=== PATIENT | male | born 1950 | race American Indian/Alaskan Native ===

== ENCOUNTER 2021-09-02 23:22 | Inpatient (IN) | payer OTHER ==
--- NOTE | 2021-09-02 23:28 | Emergency Department Report ---
ED Neuro Deficit HPI - General Chief Complaint: Neuro Symptoms/Deficit Stated Complaint: STROKE Time Seen by Provider: 09/02/21 23:25 Source: patient, EMS (Verbal report received from emergency medical services. EMS documentation not available at time of chart dictation ), RN notes reviewed Mode of arrival: Stretcher Limitations: Physical Limitation - History of Present Illness Initial Comments: The patient was evaluated in the emergency department for symptoms described in the history of present illness. He/she was evaluated in the context of the global COVID-19 pandemic, which necessitated consideration that the patient might be at risk for infection with the virus that causes COVID-19. Institutional protocols and algorithms that pertain to the evaluation of patients at risk for COVID-19 are in a state of rapid change based on information released by regulatory bodies including the CDC and federal and state organizations. These policies and algorithms were followed during the patient's care in the emergency department. Please note that these policies, procedures and recommendations changed on a rapid basis. The patient is a 71-year-old gentleman, who was brought to the hospital with emergency medical services as a stroke alert. The patient typically follows with the [facility] [address], and strokelike symptoms today include dysarthria, with onset at 7:00 PM, on September 02, 2021. The patient denies physical pain. He denies focal extremity weakness and numbness. He denies additional complaints. He denies taking systemic anticoagulation. He still feels like he is dysarthric. -: Sudden, hour(s) Location: speech Presenting Symptoms: Present: Unable to Speak Clearly History of same: No Place: home Severity: moderate Improves With: none Worsens With: none On Anticoagulants: No Associated Symptoms: denies other symptoms - Related Data Allergies/Adverse Reactions: Allergies Allergy/AdvReac Type Severity Reaction Status Date / Time No Known Allergies Allergy Verified 09/03/21 04:35 ED Review of Systems ROS: Stated complaint: STROKE Other details as noted in HPI Constitutional: denies: fever Eyes: denies: eye discharge ENT: denies: epistaxis Respiratory: denies: cough Cardiovascular: edema (Bilateral lower extremity edema). denies: chest pain Gastrointestinal: denies: abdominal pain, nausea, vomiting Genitourinary: denies: dysuria Neurological: weakness ED Neuro Physical Exam - General General appearance: alert, anxious Suspected Stroke: Yes - Head Head exam: Present: atraumatic, normocephalic - Eye Eye exam: Present: normal appearance, EOMI, other (Visual acuity intact to finger counting, color perception, reading at a close distance). Absent: nystagmus - ENT ENT exam: Present: normal exam, normal orophraynx, mucous membranes moist, normal external ear exam - Neck Neck exam: Present: normal inspection, full ROM. Absent: tenderness, meningismus - Respiratory Respiratory exam: Present: normal lung sounds bilaterally. Absent: respiratory distress, wheezes, rales, rhonchi, stridor, chest wall tenderness, accessory muscle use, decreased breath sounds, prolonged expiratory - Cardiovascular Cardiovascular Exam: Present: regular rate, normal rhythm, normal heart sounds. Absent: bradycardia, tachycardia, irregular rhythm, systolic murmur, diastolic murmur, rubs, gallop - GI/Abdominal GI/Abdominal exam: Present: soft. Absent: distended, tenderness, guarding, rebound, rigid, pulsatile mass - Rectal Rectal exam: Present: deferred - Extremities Exam Extremities exam: Present: normal inspection, full ROM, pedal edema, other (2+ pulses noted in the bilateral upper and lower extremities. There is no palpable cord. negative Homans sign. Muscular compartments are soft. The pelvis is stable.). Absent: calf tenderness - Back Exam Back exam: Present: normal inspection. Absent: tenderness, CVA tenderness (R), CVA tenderness (L), paraspinal tenderness, vertebral tenderness - Neurological Exam Neurological exam: Present: alert (Patient is dysarthric), oriented X3, other (No facial droop. Tongue midline. Extraocular movements intact bilaterally. Facial sensation intact to light touch in V1, V2, V3 distribution bilaterally. 5 and a 5 strength in 4 extremities. Sensation intact to light touch in 4 extremities.). Absent: motor sensory deficit - NIHSS Assessment Interval: Baseline 1a. Level of Consciousness: alert/keenly responsive 1b. LOC Questions: answers both correctly 1c. LOC Commands: performs tasks correctly 2. Best Gaze: normal 3. Visual: no visual loss 4. Facial Palsy: normal symmetrical movement 5b. Motor Arm Right: no drift 5a. Motor Arm Left: no drift 6a. Motor Leg Left: no drift 6b. Motor Leg Right: no drift 7. Limb Ataxia: absent 8. Sensory: normal 9. Best Language: no aphasia 10. Dysarthria: mild/moderate dysarthria 11. Extinction/Inattention: no abnormality Total Score: 1 Stroke Severity: Minor Stroke - Psychiatric Psychiatric exam: Present: normal affect, normal mood - Skin Skin exam: Present: warm, dry, intact, normal color. Absent: rash ED Course Vital Signs 09/02/21 09/03/21 09/03/21 23:27 00:30 00:46 Temperature 98.8 F Pulse Rate 96 H 102 H Respiratory 18 14 25 H Rate Blood Pressure 167/95 Blood Pressure 166/86 [Left] O2 Sat by Pulse 98 98 98 Oximetry 09/03/21 09/03/21 09/03/21 01:00 01:16 01:46 Temperature Pulse Rate 112 H 110 H 102 H Respiratory 30 H 14 15 Rate Blood Pressure 159/83 153/96 179/57 Blood Pressure [Left] O2 Sat by Pulse 99 98 99 Oximetry 09/03/21 09/03/21 09/03/21 02:30 03:01 03:15 Temperature Pulse Rate 92 H 95 H 123 H Respiratory 20 18 21 Rate Blood Pressure 159/121 159/121 157/96 Blood Pressure [Left] O2 Sat by Pulse 97 96 95 Oximetry 09/03/21 09/03/21 09/03/21 03:45 04:01 04:31 Temperature Pulse Rate 85 91 H 88 Respiratory 13 23 18 Rate Blood Pressure 144/103 128/79 140/82 Blood Pressure [Left] O2 Sat by Pulse 97 98 96 Oximetry 09/03/21 09/03/21 09/03/21 04:45 05:01 05:15 Temperature Pulse Rate 82 88 84 Respiratory 21 24 20 Rate Blood Pressure 156/98 155/95 164/101 Blood Pressure [Left] O2 Sat by Pulse 97 96 98 Oximetry 09/03/21 09/03/21 09/03/21 05:31 05:45 06:01 Temperature Pulse Rate 83 88 80 Respiratory 19 11 L 21 Rate Blood Pressure 131/91 136/84 139/82 Blood Pressure [Left] O2 Sat by Pulse 97 98 96 Oximetry 09/03/21 09/03/21 09/03/21 06:45 07:30 08:01 Temperature 98.7 F Pulse Rate 81 80 84 Respiratory 19 19 20 Rate Blood Pressure 167/99 142/93 Blood Pressure 143/98 [Left] O2 Sat by Pulse 94 96 98 Oximetry 09/03/21 09/03/2121 09:01 10:01 11:01 Temperature Pulse Rate 73 80 86 Respiratory 18 18 15 Rate Blood Pressure 148/93 151/81 158/100 Blood Pressure [Left] O2 Sat by Pulse 96 99 99 Oximetry 09/03/21 09/03/21 12:01 13:01 Temperature Pulse Rate 86 61 Respiratory 20 18 Rate Blood Pressure 156/86 132/68 Blood Pressure [Left] O2 Sat by Pulse 97 98 Oximetry - Reevaluation(s) Reevaluation #1: 09/03/21 00:11 Differential diagnosis, including but not limited to: Stroke, pneumonia, urinary tract infection, electrolyte derangement, thyroid derangement Assessment and plan: 71-year-old gentleman with dysarthria, NIH score of 1, nonfocal motor exam, who had his first contact here in the emergency room four hours, 20 minutes into symptom onset. Because of logistics involved with acquisition of CT scan, laboratory studies etc., and time of presentation here in the emergency room, relative to symptom onset, the patient is not a TPA candidate. noncontrast CT scan of the brain negative for acute findings. CT angiogram interpreted by consulting stroke neurology, Dr. Maye Orellana who indicates that there is no large vessel occlusion admission is recommended for presumed stroke. I discussed this with the patient. Aspirin ordered. Permissive hypertension allowed. Patient agreeable to admission and hospitalization 09/03/21 01:26 Dr Camejo to admit to [facility] The patient has not provided a urine sample at the time of admission. Defer to inpatient team to follow-up on urinalysis. TSH reviewed and appreciated. Defer to inpatient team to further evaluate and manage 09/03/21 16:16 - Lab Data Result diagrams: 09/03/21 00:07 09/03/21 00:07 Lab Results 09/03/21 09/03/21 09/03/21 Range/Units 00:07 00:07 00:07 WBC 13.4 H (4.5-11.0) K/mm3 RBC 4.73 (3.65-5.03) M/mm3 Hgb 16.2 H (11.8-15.2) gm/dl Hct 47.0 H (35.5-45.6) % MCV 99 H (84-94) fl MCH 34 H (28-32) pg MCHC 35 H (32-34) % RDW 16.4 H (13.2-15.2) % Plt Count 313 (140-440) K/mm3 Add Manual Diff Complete Total Counted 100 Seg Neuts % (Manual) 86.0 H (40.0-70.0) % Lymphocytes % (Manual) 8.0 L (13.4-35.0) % Monocytes % (Manual) 6.0 (0.0-7.3) % Nucleated RBC % Not Reportable Seg Neutrophils # Man 11.5 H (1.8-7.7) K/mm3 Band Neutrophils # 0.0 K/mm3 Lymphocytes # (Manual) 1.1 L (1.2-5.4) K/mm3 Abs React Lymphs (Man) 0.0 K/mm3 Monocytes # (Manual) 0.8 (0.0-0.8) K/mm3 Eosinophils # (Manual) 0.0 (0.0-0.4) K/mm3 Basophils # (Manual) 0.0 (0.0-0.1) K/mm3 Metamyelocytes # 0.0 K/mm3 Myelocytes # 0.0 K/mm3 Promyelocytes # 0.0 K/mm3 Blast Cells # 0.0 K/mm3 WBC Morphology Not Reportable Hypersegmented Neuts Not Reportable Hyposegmented Neuts Not Reportable Hypogranular Neuts Not Reportable Smudge Cells Not Reportable Toxic Granulation Not Reportable Toxic Vacuolation Not Reportable Dohle Bodies Not Reportable Pelger-Huet Anomaly Not Reportable Fredrick Rods Not Reportable Platelet Estimate Consistent w auto Clumped Platelets Not Reportable Plt Clumps, EDTA Not Reportable Large Platelets Not Reportable Giant Platelets Not Reportable Platelet Satelliting Not Reportable Plt Morphology Comment Not Reportable RBC Morphology Not Reportable Dimorphic RBCs Not Reportable Polychromasia Not Reportable Hypochromasia Not Reportable Poikilocytosis Not Reportable Anisocytosis Not Reportable Microcytosis Not Reportable Macrocytosis Few Spherocytes Not Reportable Pappenheimer Bodies Not Reportable Sickle Cells Not Reportable Target Cells Not Reportable Tear Drop Cells Not Reportable Ovalocytes Not Reportable Helmet Cells Not Reportable [place] Bodies Not Reportable [place] Rings Not Reportable Shaji Cells Not Reportable Bite Cells Not Reportable Crenated Cell Not Reportable Elliptocytes Not Reportable Acanthocytes (Spur) Not Reportable Rouleaux Not Reportable Hemoglobin C Crystals Not Reportable Schistocytes Not Reportable Malaria parasites Not Reportable Grady Bodies Not Reportable Hem Pathologist Commnt No PT 13.1 (12.2-14.9) Sec. INR 0.94 (0.87-1.13) APTT 26.4 (24.2-36.6) Sec. Thrombin Time 17.2 (15.1-19.6) Sec. Sodium (137-145) mmol/L Potassium (3.6-5.0) mmol/L Chloride (98-107) mmol/L Carbon Dioxide (22-30) mmol/L Anion Gap mmol/L BUN (9-20) mg/dL Creatinine (0.8-1.3) mg/dL Estimated GFR ml/min BUN/Creatinine Ratio % Glucose (75-100) mg/dL Calcium (8.4-10.2) mg/dL Magnesium (1.7-2.3) mg/dL Total Bilirubin (0.1-1.2) mg/dL AST (5-40) units/L ALT (7-56) units/L Alkaline Phosphatase (35-129) units/L Total Creatine Kinase 222 H (55-170) units/L CK-MB (CK-2) 4.0 (0.0-4.0) ng/mL CK-MB (CK-2) Rel Index 1.8 (0-4) Troponin T < 0.010 (0.00-0.029) ng/mL NT-Pro-B Natriuret Pep (0-900) pg/mL Total Protein (6.3-8.2) g/dL Albumin (3.9-5) g/dL Albumin/Globulin Ratio % TSH (0.270-4.200) mlU/mL Plasma/Serum Alcohol (0-0.07) % 09/03/21 09/03/21 09/03/21 Range/Units 00:07 00:07 00:07 WBC (4.5-11.0) K/mm3 RBC (3.65-5.03) M/mm3 Hgb (11.8-15.2) gm/dl Hct (35.5-45.6) % MCV (84-94) fl MCH (28-32) pg MCHC (32-34) % RDW (13.2-15.2) % Plt Count (140-440) K/mm3 Add Manual Diff Total Counted Seg Neuts % (Manual) (40.0-70.0) % Lymphocytes % (Manual) (13.4-35.0) % Monocytes % (Manual) (0.0-7.3) % Nucleated RBC % Seg Neutrophils # Man (1.8-7.7) K/mm3 Band Neutrophils # K/mm3 Lymphocytes # (Manual) (1.2-5.4) K/mm3 Abs React Lymphs (Man) K/mm3 Monocytes # (Manual) (0.0-0.8) K/mm3 Eosinophils # (Manual) (0.0-0.4) K/mm3 Basophils # (Manual) (0.0-0.1) K/mm3 Metamyelocytes # K/mm3 Myelocytes # K/mm3 Promyelocytes # K/mm3 Blast Cells # K/mm3 WBC Morphology Hypersegmented Neuts Hyposegmented Neuts Hypogranular Neuts Smudge Cells Toxic Granulation Toxic Vacuolation Dohle Bodies Pelger-Huet Anomaly Fredrick Rods Platelet Estimate Clumped Platelets Plt Clumps, EDTA Large Platelets Giant Platelets Platelet Satelliting Plt Morphology Comment RBC Morphology Dimorphic RBCs Polychromasia Hypochromasia Poikilocytosis Anisocytosis Microcytosis Macrocytosis Spherocytes Pappenheimer Bodies Sickle Cells Target Cells Tear Drop Cells Ovalocytes Helmet Cells [place] Bodies [place] Rings [place] Cells Bite Cells Crenated Cell Elliptocytes Acanthocytes (Spur) Rouleaux Hemoglobin C Crystals Schistocytes Malaria parasites Grady Bodies Hem Pathologist Commnt PT (12.2-14.9) Sec. INR (0.87-1.13) APTT (24.2-36.6) Sec. Thrombin Time (15.1-19.6) Sec. Sodium 137 (137-145) mmol/L Potassium 4.3 (3.6-5.0) mmol/L Chloride 102.4 (98-107) mmol/L Carbon Dioxide 20 L (22-30) mmol/L Anion Gap 19 mmol/L BUN 10 (9-20) mg/dL Creatinine 1.1 (0.8-1.3) mg/dL Estimated GFR > 60 ml/min BUN/Creatinine Ratio 9 % Glucose 167 H (75-100) mg/dL Calcium 9.0 (8.4-10.2) mg/dL Magnesium 1.70 (1.7-2.3) mg/dL Total Bilirubin 0.60 (0.1-1.2) mg/dL AST 23 (5-40) units/L ALT 23 (7-56) units/L Alkaline Phosphatase 67 (35-129) units/L Total Creatine Kinase (55-170) units/L CK-MB (CK-2) (0.0-4.0) ng/mL CK-MB (CK-2) Rel Index (0-4) Troponin T (0.00-0.029) ng/mL NT-Pro-B Natriuret Pep 415.9 (0-900) pg/mL Total Protein 7.2 (6.3-8.2) g/dL Albumin 4.0 (3.9-5) g/dL Albumin/Globulin Ratio 1.3 % TSH (0.270-4.200) mlU/mL Plasma/Serum Alcohol < 0.01 (0-0.07) % 09/03/21 Range/Units 00:07 WBC (4.5-11.0) K/mm3 RBC (3.65-5.03) M/mm3 Hgb (11.8-15.2) gm/dl Hct (35.5-45.6) % MCV (84-94) fl MCH (28-32) pg MCHC (32-34) % RDW (13.2-15.2) % Plt Count (140-440) K/mm3 Add Manual Diff Total Counted Seg Neuts % (Manual) (40.0-70.0) % Lymphocytes % (Manual) (13.4-35.0) % Monocytes % (Manual) (0.0-7.3) % Nucleated RBC % Seg Neutrophils # Man (1.8-7.7) K/mm3 Band Neutrophils # K/mm3 Lymphocytes # (Manual) (1.2-5.4) K/mm3 Abs React Lymphs (Man) K/mm3 Monocytes # (Manual) (0.0-0.8) K/mm3 Eosinophils # (Manual) (0.0-0.4) K/mm3 Basophils # (Manual) (0.0-0.1) K/mm3 Metamyelocytes # K/mm3 Myelocytes # K/mm3 Promyelocytes # K/mm3 Blast Cells # K/mm3 WBC Morphology Hypersegmented Neuts Hyposegmented Neuts Hypogranular Neuts Smudge Cells Toxic Granulation Toxic Vacuolation Dohle Bodies Pelger-Huet Anomaly Fredrick Rods Platelet Estimate Clumped Platelets Plt Clumps, EDTA Large Platelets Giant Platelets Platelet Satelliting Plt Morphology Comment RBC Morphology Dimorphic RBCs Polychromasia Hypochromasia Poikilocytosis Anisocytosis Microcytosis Macrocytosis Spherocytes Pappenheimer Bodies Sickle Cells Target Cells Tear Drop Cells Ovalocytes Helmet Cells [place] Bodies [place] Rings Shaji Cells Bite Cells Crenated Cell Elliptocytes Acanthocytes (Spur) Rouleaux Hemoglobin C Crystals Schistocytes Malaria parasites Grady Bodies Hem Pathologist Commnt PT (12.2-14.9) Sec. INR (0.87-1.13) APTT (24.2-36.6) Sec. Thrombin Time (15.1-19.6) Sec. Sodium (137-145) mmol/L Potassium (3.6-5.0) mmol/L Chloride (98-107) mmol/L Carbon Dioxide (22-30) mmol/L Anion Gap mmol/L BUN (9-20) mg/dL Creatinine (0.8-1.3) mg/dL Estimated GFR ml/min BUN/Creatinine Ratio % Glucose (75-100) mg/dL Calcium (8.4-10.2) mg/dL Magnesium (1.7-2.3) mg/dL Total Bilirubin (0.1-1.2) mg/dL AST (5-40) units/L ALT (7-56) units/L Alkaline Phosphatase (35-129) units/L Total Creatine Kinase (55-170) units/L CK-MB (CK-2) (0.0-4.0) ng/mL CK-MB (CK-2) Rel Index (0-4) Troponin T (0.00-0.029) ng/mL NT-Pro-B Natriuret Pep (0-900) pg/mL Total Protein (6.3-8.2) g/dL Albumin (3.9-5) g/dL Albumin/Globulin Ratio % TSH 8.140 H (0.270-4.200) mlU/mL Plasma/Serum Alcohol (0-0.07) % Vital Signs 09/02/21 23:27 Temperature 98.8 F Pulse Rate 96 H Respiratory 18 Rate Blood Pressure 166/86 [Left] O2 Sat by Pulse 98 Oximetry - EKG Data -: EKG Interpreted by [place] EKG shows normal: sinus rhythm Rate: normal When compared to previous EKG there are: previous EKG unavailable 09/03/21 00:10 EKG interpreted at 12: 00 a.m. Sinus rhythm, tachycardia, rate 100 bpm. Left axis deviation, left ventricular hypertrophy, PVCs. First-degree AV block, QTC 448 ms. Abnormal EKG. Not a STEMI. - Radiology Data Radiology results: pending, report reviewed, image reviewed CT HEAD WITHOUT CONTRAST INDICATION / CLINICAL INFORMATION: Stroke symptoms dysarthria. Dysarthria TECHNIQUE: All CT scans at this location are performed using CT dose reduction for ALARA by means of automated exposure control. CO MPARISON: None available. FINDINGS: HEMORRHAGE: None. EXTRA-AXIAL SPACES: Normal in size and morphology for the patient's age. VENTRICULAR SYSTEM: Normal in size and morphology for the patient's age. CEREBRAL PARENCHYMA: Moderate periventricular and deep white matter hypoattenuation characteristic for microangiopathy. No significant abnormality. No acute territorial infarct. MIDLINE SHIFT OR HERNIATION: None. CEREBELLUM / BRAINSTEM: No significant abnormality. ORBITS: Normal as visualized. SOFT TISSUES of HEAD: No significant abnormality. CALVARIUM: No significant abnormality. PARANASAL SINUSES / MASTOID AIR CELLS: Normal as visualized. ADDITIONAL FINDINGS: None. IMPRESSION: 1. No acute intracranial abnormality. 2. Microangiopathy CODE STROKE: Time of Communication (INSPECTOR BALANCE TRUING/CDT): 10:52 PM Central time 09/02/2021 Licensed Practitioner Receiving Report: Jacob Shrestha Signer Name: Mark Kirk MD Signed: 09/02/2021 10:53 PM Workstation Name: [id number] CHEST 1 VIEW 09/02/2021 11:27 PM INDICATION / CLINICAL INFORMATION: CVA symptoms, lower extremity edema. COMPARISON: None available. FINDINGS: SUPPORT DEVICES: None. HEART / MEDIASTINUM: No significant abnormality. LUNGS / PLEURA: No significant pulmonary or pleural abnormality. No pneumothorax. ADDITIONAL FINDINGS: No significant additional findings. IMPRESSION: 1. No acute findings. Signer Name: Mark Kirk MD Signed: 09/02/2021 11:31 PM COMPARISON: None. TECHNIQUE: All CT scans at this location are performed using CT dose reduction for ALARA by means of automated exposure control.. 3-D/MIP reformats postprocessed. Percentage stenosis is determined by direct quantitative measurements of diseased internal carotid artery diameter compared with normal distal internal carotid artery reference segments or by criteria similar to NASCET where applicable. CONTRAST: 100 ml of Omnipaque 350 FINDINGS: CT HEAD: BRAIN / INTRACRANIAL CONTENTS: No acute hemorrhage, mass effect, midline shift, or hydrocephalus. No appreciable acute large territorial or lacunar infarct. ORBITS: No significant abnormality of visualized orbits. SINUSES / MASTOIDS: No significant abnormality of visualized sinuses and mastoid air cells. CTA HEAD: Intracranial vertebral arteries: No significant abnormality. Basilar artery: No significant abnormality. Posterior cerebral arteries: No significant abnormality. Intracranial internal carotid arteries: No significant abnormality. Anterior cerebral arteries: No significant abnormali ty. Middle cerebral arteries: No significant abnormality. Dural venous sinuses:Not optimally opacified. No significant abnormality. CTA NECK: Aortic arch: No significant abnormality. Cervical vertebral arteries: No significant abnormality. Common carotid arteries: No significant abnormality. Cervical internal carotid arteries: Mild atherosclerotic plaque in both carotid bulbs without significant stenosis. Additional findings: None. IMPRESSION: 1. No significant stenosis or large vessel occlusion in the neck or intracranial arteries. Signer Name: Isma Mckinney MD Signed: 09/02/2021 11:30 PM Workstation Name: [id number] COMPARISON: None. TECHNIQUE: All CT scans at this location are performed using CT dose reduction for ALARA by means of automated exposure control.. 3-D/MIP reformats postprocessed. Percentage stenosis is determined by direct quantitative measurements of diseased internal carotid artery diameter compared with normal distal internal carotid artery reference segments or by criteria similar to NASCET where applicable. CONTRAST: 100 ml of Omnipaque 350 FINDINGS: CT HEAD: BRAIN / INTRACRANIAL CONTENTS: No acute hemorrhage, mass effect, midline shift, or hydrocephalus. No appreciable acute large territorial or lacunar infarct. ORBITS: No significant abnormality of visualized orbits. SINUSES / MASTOIDS: No significant abnormality of visualized sinuses and mastoid air cells. CTA HEAD: Intracranial vertebral arteries: No significant abnormality. Basilar artery: No significant abnormality. Posterior cerebral arteries: No significant abnormality. Intracranial internal carotid arteries: No significant abnormality. Anterior cerebral arteries: No significant abnormality. Middle cerebral arteries: No significant abnormality. Dural venous sinuses:Not optimally opacified. No significant abnormality. CTA NECK: Aortic arch: No significant abnormality. Cervical vertebral arteries: No significant abnormality. Common carotid arteries: No significant abnormality. Cervical internal carotid arteries: Mild atherosclerotic plaque in both carotid bulbs without significant stenosis. Additional findings: None. IMPRESSION: 1. No significant stenosis or large vessel occlusion in the neck or intracranial arteries. Signer Name: Isma Mckinney MD Signed: 09/02/2021 11:30 PM Workstation Name: [id number] - Core Measures Measure Exclusions: not indicated - Thrombolytic Inclusion/Exclusion Thrombolytic Exclusion Criteria: Symptom Onset > 3 Hours Critical care attestation.: If time is entered above; I have spent that time in minutes in the direct care of this critically ill patient, excluding procedure time. ED Disposition Clinical Impression: Dysarthria, Lower extremity edema Disposition: ADMITTED INPATIENT Is pt being admited?: Yes Does the pt Need Aspirin: Yes Condition: Stable
--- NOTE | 2021-09-02 23:57 | Cat Scan Report ---
CT HEAD WITHOUT CONTRAST INDICATION / CLINICAL INFORMATION: Stroke symptoms dysarthria. Dysarthria TECHNIQUE: All CT scans at this location are performed using CT dose reduction for ALARA by means of automated e xposure control. COMPARISON: None available. FINDINGS: HEMORRHAGE: None. EXTRA-AXIAL SPACES: Normal in size and morphology for the patient's age. VENTRICULAR SYSTEM: Normal in size and morphology for the patient's age. CEREBRAL PARENCHYMA: Moderate periventricular and deep white matter hypoattenuation characteristic fo r microangiopathy. No significant abnormality. No acute territorial infarct. MIDLINE SHIFT OR HERNIATION: None. CEREBELLUM / BRAINSTEM: No significant abnormality. ORBITS: Normal as visualized. SOFT TISSUES of HEAD: No significant abnormality. CALVARIUM: No significant abnormality. PARANASAL SINUSES / MASTOID AIR CELLS: Normal as visualized. ADDITIONAL FINDINGS: None. IMPRESSION: 1. No acute intracranial abnormality. 2. Microangiopathy CODE STROKE: Time of Communication (ANDROID PROGRAMMER/CDT): 10:52 PM Central time 09/02/2021 Licensed Practitioner Receiving Report: Jacob Shrestha Signer Name: Mark Kirk MD Signed: 09/02/2021 11:53 PM Workstation Name: [id number]
--- NOTE | 2021-09-03 00:10 | Emergency Department Report ---
Blank Doc - Documentation Documentation: [facility] Consult Note # Demographics Consult Type: Acute Stroke Level 1 (0-4.5 hrs) Patient Location: Emergency Room First Name: Link Last Name: João Date of : 1950 Age: 71 Gender: Male Facility: [facility] Time of Initial Page ( Time): 09/02/2021, 23:25 Time of Return Call ( Time): 09/02/2021, 23:27 # HPI History: 71 yo man noted that around 7pm, he developed sudden onset facial droop and slurred speech, imbalance. has aphasia and right sided facial droop. # Scores Time of exam and NIHSS ( Time): 09/02/2021, 23:49 Level of Consciousness 1a: [0] = Alert; keenly responsive LOC Questions 1b: [0] = Answers both questions correctly LOC Commands 1c: [0] = Performs both tasks correctly Best Gaze 2: [0] = Normal Visual 3: [0] = No visual loss Facial Palsy 4: [0] = Normal symmetrical movements Motor Arm Left 5a: [0] = No drift Motor Arm Right 5b: [0] = No drift Motor Leg Left 6a: [0] = No drift Motor Leg Right 6b: [0] = No drift Limb Ataxia 7: [0] = Absent Sensory 8: [0] = Normal Best Language 9: [0] = No aphasia Dysarthria 10: [1] = [id number] dysarthria Extinction and Inattention 11: [0] = No abnormality NIHSS Total: 1 # Data Head CT: no bleed # Assessment Impression: slurred speech, resolved facial droop out of tpa window # Plan Thrombolytic/Intervention: NOT IV Thrombolysis or IA Intervention candidate Thrombolytic Exclusion: > 4.5 hours Intraarterial Exclusion: no large vessel occlusion (LVO) Target Blood Pressure: SBP < 220 Labs: CBC comprehensive metabolic panel lipid panel TSH ua Diagnostic Test: echo with bubble study Therapy/Evaluation: speech/swallow consultation Medication: aspirin 325 mg daily DVT Prophylaxis: heparin 5000 units subcutaneously q 12 hours Other: consult on-site neurology service for full work-up and evaluation recommendations If patient has any neurological deterioration please call me back immediately I have discussed my recommendations with the referring provider Additional Recommendations: Admit for stroke work up Disposition: admit # Logistics Telemedicine: Interactive 2 way audio and visual telecommunication technology was utilized during this visit
--- NOTE | 2021-09-03 00:26 | Consultation ---
History of Present Illness History of present illness: [facility] Consult Note # Demographics Consult Type: Acute Stroke Level 1 (0-4.5 hrs) Patient Location: Emergency Room First Name: Link Last Name: João Date of : 1950 Age: 71 Gender: Male Facility: [facility] Time of Initial Page ( Time): 09/03/2021, 00:05 Time of Return Call ( Time): 09/03/2021, 00:07 # HPI History: 71M presents with slurred speech and trouble with balance. Also had a facial droop initially. LKWT 1900. BP 167/95 # Scores Time of exam and NIHSS ( Time): 09/03/2021, 00:09 Level of Consciousness 1a: [0] = Alert; keenly responsive LOC Questions 1b: [0] = Answers both questions correctly LOC Commands 1c: [0] = Performs both tasks correctly Best Gaze 2: [0] = Normal Visual 3: [0] = No visual loss Facial Palsy 4: [0] = Normal symmetrical movements Motor Arm Left 5a: [0] = No drift Motor Arm Right 5b: [0] = No drift Motor Leg Left 6a: [0] = No drift Motor Leg Right 6b: [0] = No drift Limb Ataxia 7: [0] = Absent Sensory 8: [0] = Normal Best Language 9: [0] = No aphasia Dysarthria 10: [1] = [id number]-[id number] dysarthria Extinction and Inattention 11: [0] = No abnormality NIHSS Total: 1 # Assessment Impression: Ischemic Stroke (Acute) # Plan Thrombolytic/Intervention: NOT IV Thrombolysis or IA Intervention candidate Thrombolytic Exclusion: > 4.5 hours Intraarterial Exclusion: no large vessel occlusion (LVO) Target Blood Pressure: SBP < 220 DBP < 105 Labs: hemoglobin A1c lipid panel Imaging: (urgency: routine): MRI Brain without contrast Diagnostic Test: echo without bubble study Therapy/Evaluation: PT/OT evaluation speech/swallow consultation Medication: ASA 325 then 81 daily Plavix 300 then 75 daily x 3 weeks Atorvastatin 80, tailor to LDL < 70 goal DVT Prophylaxis: SCD chemical DVT prophylaxis Other: permissive hypertension telemetry monitoring I have discussed my recommendations with the referring provider Disposition: admit # Logistics Telemedicine: Interactive 2 way audio and visual telecommunication technology was utilized during this visit Electronically signed at 09/03/2021 00:25 (Eastern Time) by Dwayne Dave MD Medications and Allergies Allergies Allergy/AdvReac Type Severity Reaction Status Date / Time No Known Allergies Allergy Unverified 09/02/21 23:30 Physical Examination - Vital Signs Vital Signs: Vital Signs Temp Pulse Resp BP Pulse Ox 98.8 F 96 H 18 166/86 98 09/02/21 23:27 09/02/21 23:27 09/02/21 23:27 09/02/21 23:27 09/02/21 23:27
[2021-09-03] MEDS ORDERED: ASPIRIN 81 MG TAB CHEW PO ONE (00:27)
--- NOTE | 2021-09-03 00:34 | Cat Scan Report ---
CTA HEAD AND NECK WITH CONTRAST HISTORY: Dysarthria, stroke symptoms COMPARISON: None. TECHNIQUE: All CT scans at this location are performed using CT dose reduction for ALARA by means of automated exposure control.. 3-D/MIP reformats postprocessed. Percentage stenosis is determined by d irect quantitative measurements of diseased internal carotid artery diameter compared with normal dis ann-marie internal carotid artery reference segments or by criteria similar to NASCET where applicable. CONTRAST: 100 ml of Omnipaque 350 FINDINGS: CT HEAD: BRAIN / INTRACRANIAL CONTENTS: No acute hemorrhage, mass effect, midline shift, or hydrocephalus. No appreciable acute large territorial or lacunar infarct. ORBITS: No significant abnormality of visualized orbits. SINUSES / MASTOIDS: No significant abnormality of visualized sinuses and mastoid air cells. CTA HEAD: Intracranial vertebral arteries: No significant abnormality. Basilar artery: No significant abnormality. Posterior cerebral arteries: No significant abnormality. Intracranial internal carotid arteries: No significant abnormality. Anterior cerebral arteries: No significant abnormality. Middle cerebral arteries: No significant abnormality. Dural venous sinuses:Not optimally opacified. No significant abnormality. CTA NECK: Aortic arch: No significant abnormality. Cervical vertebral arteries: No significant abnormality. Common carotid arteries: No significant abnormality. Cervical internal carotid arteries: Mild atherosclerotic plaque in both carotid bulbs without signifi cant stenosis. Additional findings: None. IMPRESSION: 1. No significant stenosis or large vessel occlusion in the neck or intracranial arteries. Signer Name: Isma Mckinney MD Signed: 09/03/2021 12:30 AM Workstation Name: [id number]
--- NOTE | 2021-09-03 00:35 | XRay Report ---
CHEST 1 VIEW 09/02/2021 11:27 PM INDICATION / CLINICAL INFORMATION: CVA symptoms, lower extremity edema. COMPARISON: None available. FINDINGS: SUPPORT DEVICES: None. HEART / MEDIASTINUM: No significant abnormality. LUNGS / PLEURA: No significant pulmonary or pleural abnormality. No pneumothorax. ADDITIONAL FINDINGS: No significant additional findings. IMPRESSION: 1. No acute findings. Signer Name: Mark Kirk MD Signed: 09/03/2021 12:31 AM Workstation Name: [id number]
[2021-09-03 00:44] LABS: Hemoglobin 16.2 gm/dl (11.8-15.2); Mean Corpuscular HGB Conc 35 % (32-34); Mean Corpuscular Volume 99 fl (84-94); Red Blood Count 4.73 M/mm3 (3.65-5.03); Red Cell Distribution Width 16.4 % (13.2-15.2)
[2021-09-03 00:47] LABS: Alanine Aminotransferase 23 units/L (7-56); BUN/Creatinine Ratio 9; Blood Urea Nitrogen 10 mg/dL (9-20); Hemolysis Index 10
[2021-09-03 00:52] LABS: Platelet Count 313 K/mm3 (140-440)
[2021-09-03 00:55] LABS: INR 0.94 (0.87-1.13); Partial Thromboplastin Time 26.4 Sec. (24.2-36.6); Thrombin Time 17.2 Sec. (15.1-19.6)
[2021-09-03 02:24] LABS: Total Cells Counted 100
[2021-09-03 02:25] LABS: Macrocytosis Few; Platelet Estimate Consistent w Auto
[2021-09-03 03:23] LABS: Bilirubin,Urine NEG (Negative); Blood,Urine LG (Negative); Color,Urine Straw (Yellow); Urobilinogen,Urine < 2.0 mg/dL (<2.0)
[2021-09-03] MEDS ORDERED: HYDROmorphone 1 MG/1 ML INJ IV PRN (04:15)
[2021-09-03] MEDS ORDERED: ACETAMINOPHEN 325 MG TAB PO PRN (04:15)
[2021-09-03] MEDS ORDERED: oxyCODONE /ACETAMINOPHEN 5-325MG TAB PO PRN (04:15)
[2021-09-03] MEDS ORDERED: ALBUTEROL 2.5 MG/3 ML NEBU IH PRN (04:15)
[2021-09-03] MEDS ORDERED: ONDANSETRON 4 MG/2 ML INJ IV PRN (04:15)
[2021-09-03] MEDS ORDERED: CLOPIDOGREL 75 MG TAB PO ONE (04:21)
--- NOTE | 2021-09-03 04:27 | History and Physical Report ---
History of Present Illness Date of examination: 09/03/21 Date of admission: 09/03/21 Chief complaint: Slurred speech History of present illness: 71-year-old gentleman was brought to the hospital because of slurred speech and trouble with balance. Also patient had a facial droop initially. The patient came to the hospital because stroke like symptoms today include dysarthria, with onset at 7:00 PM, on September 02, 2021. The patient denies physical pain. He denies focal extremity weakness and numbness. He denies additional complaints. He denies taking systemic anticoagulation. He still feels like he is dysarthric. Initial CT scan of the head shows no acute intracranial abnormality. Patient is seen and evaluated by telemetry neurology. Will admit the patient we will put the patient on stroke pathway will do MRI MRA and echocardiogram Medications and Allergies Allergies Allergy/AdvReac Type Severity Reaction Status Date / Time No Known Allergies Allergy Unverified 09/02/21 23:30 Active Meds: Active Medications Acetaminophen (Acetaminophen 325 Mg Tab) 650 mg PO Q4H PRN PRN Reason: Pain MILD(1-3)/Fever >100.5/SOTO Albuterol (Albuterol 2.5 Mg/3 Ml Nebu) 2.5 mg IH Q4HRT PRN PRN Reason: Shortness Of Breath Albuterol/Ipratropium (Ipratropium/Albuterol Sulfate 3 Ml Ampul.Neb) 1 ampul IH Q6HRT RONALDO Aspirin (Aspirin 325 Mg Tab) 325 mg PO QDAY RONALDO Atorvastatin Calcium (Atorvastatin 40 Mg Tab) 80 mg PO QHS [facility] Clopidogrel Bisulfate (Clopidogrel 75 Mg Tab) 75 mg PO ONCE ONE Stop: 09/03/21 04:22 Famotidine (Famotidine 20 Mg Tab) 20 mg PO BID [facility] Heparin Sodium (Porcine) (Heparin 5,000 Unit/1 Ml Vial) 5,000 unit SUB-Q Q8HR RONALDO Hydromorphone HCl (Hydromorphone 1 Mg/1 Ml Inj) 0.5 mg IV Q3H PRN PRN Reason: Pain , Severe (7-10) Dextrose/Sodium Chloride (D5ns) 1,000 mls @ 100 mls/hr IV DIRECT RONALDO Ondansetron HCl (Ondansetron 4 Mg/2 Ml Inj) 4 mg IV Q8H PRN PRN Reason: Nausea And Vomiting Oxycodone/Acetaminophen (Oxycodone /Acetaminophen 5-325mg Tab) 1 tab PO Q6H PRN PRN Reason: Pain, Moderate (4-6) Sodium Chloride (Sodium Chloride 0.9% 10 Ml Flush Syringe) 10 ml IV BID RONALDO Sodium Chloride (Sodium Chloride 0.9% 10 Ml Flush Syringe) 10 ml IV PRN PRN PRN Reason: LINE FLUSH Sodium Chloride (Sodium Chloride 0.9% 10 Ml Flush Syringe) 10 ml INJ PRN PRN PRN Reason: LINE FLUSH Review of Systems All systems: negative Neurological: change in speech, other (Facial droop) Exam - Constitutional Vitals: Temp Pulse Resp BP Pulse Ox 98.8 F 96 H 14 166/86 98 09/02/21 23:27 09/02/21 23:27 09/03/21 00:30 09/02/21 23:27 09/03/21 00:30 General appearance: Present: no acute distress, well-nourished - EENT Eyes: Present: PERRL ENT: hearing intact, clear oral mucosa - Neck Neck: Present: supple, normal ROM - Respiratory Respiratory effort: normal Respiratory: bilateral: CTA - Cardiovascular Heart Sounds: Present: S1 & S2. Absent: rub, click - Extremities Extremities: pulses symmetrical, No edema Peripheral Pulses: within normal limits - Abdominal General gastrointestinal: Present: soft, non-tender, non-distended, normal bowel sounds Male genitourinary: Present: normal - Integumentary Integumentary: Present: clear, warm, dry - Musculoskeletal Musculoskeletal: gait normal, strength equal bilaterally - Psychiatric Psychiatric: appropriate mood/affect, intact judgment & insight - Neurologic Neurologic: CNII-XII intact, moves all extremities, other (Facial droop. Slurred speech) HEART Score - HEART Score Troponin: Troponin T < 0.010 ng/mL (0.00-0.029) 09/03/21 00:07 Results - Labs CBC & Chem 7: 09/03/21 00:07 09/03/21 00:07 Labs: Laboratory Last Values WBC 13.4 K/mm3 (4.5-11.0) H 09/03/21 00:07 RBC 4.73 M/mm3 (3.65-5.03) 09/03/21 00:07 Hgb 16.2 gm/dl (11.8-15.2) H 09/03/21 00:07 Hct 47.0 % (35.5-45.6) H 09/03/21 00:07 MCV 99 fl (84-94) H 09/03/21 00:07 MCH 34 pg (28-32) H 09/03/21 00:07 MCHC 35 % (32-34) H 09/03/21 00:07 RDW 16.4 % (13.2-15.2) H 09/03/21 00:07 Plt Count 313 K/mm3 (140-440) 09/03/21 00:07 Add Manual Diff Complete 09/03/21 00:07 Total Counted 100 09/03/21 00:07 Seg Neuts % (Manual) 86.0 % (40.0-70.0) H 09/03/21 00:07 Lymphocytes % (Manual) 8.0 % (13.4-35.0) L 09/03/21 00:07 Monocytes % (Manual) 6.0 % (0.0-7.3) 09/03/21 00:07 Nucleated RBC % Not Reportable 09/03/21 00:07 Seg Neutrophils # Man 11.5 K/mm3 (1.8-7.7) H 09/03/21 00:07 Band Neutrophils # 0.0 K/mm3 09/03/21 00:07 Lymphocytes # (Manual) 1.1 K/mm3 (1.2-5.4) L 09/03/21 00:07 Abs React Lymphs (Man) 0.0 K/mm3 09/03/21 00:07 Monocytes # (Manual) 0.8 K/mm3 (0.0-0.8) 09/03/21 00:07 Eosinophils # (Manual) 0.0 K/mm3 (0.0-0.4) 09/03/21 00:07 Basophils # (Manual) 0.0 K/mm3 (0.0-0.1) 09/03/21 00:07 Metamyelocytes # 0.0 K/mm3 09/03/21 00:07 Myelocytes # 0.0 K/mm3 09/03/21 00:07 Promyelocytes # 0.0 K/mm3 09/03/21 00:07 Blast Cells # 0.0 K/mm3 09/03/21 00:07 WBC Morphology Not Reportable 09/03/21 00:07 Hypersegmented Neuts Not Reportable 09/03/21 00:07 Hyposegmented Neuts Not Reportable 09/03/21 00:07 Hypogranular Neuts Not Reportable 09/03/21 00:07 Smudge Cells Not Reportable 09/03/21 00:07 Toxic Granulation Not Reportable 09/03/21 00:07 Toxic Vacuolation Not Reportable 09/03/21 00:07 Dohle Bodies Not Reportable 09/03/21 00:07 Pelger-Huet Anomaly Not Reportable 09/03/21 00:07 Fredrick Rods Not Reportable 09/03/21 00:07 Platelet Estimate Consistent w auto 09/03/21 00:07 Clumped Platelets Not Reportable 09/03/21 00:07 Plt Clumps, EDTA Not Reportable 09/03/21 00:07 Large Platelets Not Reportable 09/03/21 00:07 Giant Platelets Not Reportable 09/03/21 00:07 Platelet Satelliting Not Reportable 09/03/21 00:07 Plt Morphology Comment Not Reportable 09/03/21 00:07 RBC Morphology Not Reportable 09/03/21 00:07 Dimorphic RBCs Not Reportable 09/03/21 00:07 Polychromasia Not Reportable 09/03/21 00:07 Hypochromasia Not Reportable 09/03/21 00:07 Poikilocytosis Not Reportable 09/03/21 00:07 Anisocytosis Not Reportable 09/03/21 00:07 Microcytosis Not Reportable 09/03/21 00:07 Macrocytosis Few 09/03/21 00:07 Spherocytes Not Reportable 09/03/21 00:07 Pappenheimer Bodies Not Reportable 09/03/21 00:07 Sickle Cells Not Reportable 09/03/21 00:07 Target Cells Not Reportable 09/03/21 00:07 Tear Drop Cells Not Reportable 09/03/21 00:07 Ovalocytes Not Reportable 09/03/21 00:07 Helmet Cells Not Reportable 09/03/21 00:07 [place] Bodies Not Reportable 09/03/21 00:07 [place] Rings Not Reportable 09/03/21 00:07 [place] Cells Not Reportable 09/03/21 00:07 Bite Cells Not Reportable 09/03/21 00:07 Crenated Cell Not Reportable 09/03/21 00:07 Elliptocytes Not Reportable 09/03/21 00:07 Acanthocytes (Spur) Not Reportable 09/03/21 00:07 Rouleaux Not Reportable 09/03/21 00:07 Hemoglobin C Crystals Not Reportable 09/03/21 00:07 Schistocytes Not Reportable 09/03/21 00:07 Malaria parasites Not Reportable 09/03/21 00:07 Grady Bodies Not Reportable 09/03/21 00:07 Hem Pathologist Commnt No 09/03/21 00:07 PT 13.1 Sec. (12.2-14.9) 09/03/21 00:07 INR 0.94 (0.87-1.13) 09/03/21 00:07 APTT 26.4 Sec. (24.2-36.6) 09/03/21 00:07 Thrombin Time 17.2 Sec. (15.1-19.6) 09/03/21 00:07 Sodium 137 mmol/L (137-145) 09/03/21 00:07 Potassium 4.3 mmol/L (3.6-5.0) 09/03/21 00:07 Chloride 102.4 mmol/L (98-107) 09/03/21 00:07 Carbon Dioxide 20 mmol/L (22-30) L 09/03/21 00:07 Anion Gap 19 mmol/L 09/03/21 00:07 BUN 10 mg/dL (9-20) 09/03/21 00:07 Creatinine 1.1 mg/dL (0.8-1.3) 09/03/21 00:07 Estimated GFR > 60 ml/min 09/03/21 00:07 BUN/Creatinine Ratio 9 % 09/03/21 00:07 Glucose 167 mg/dL (75-100) H 09/03/21 00:07 Calcium 9.0 mg/dL (8.4-10.2) 09/03/21 00:07 Magnesium 1.70 mg/dL (1.7-2.3) 09/03/21 00:07 Total Bilirubin 0.60 mg/dL (0.1-1.2) 09/03/21 00:07 AST 23 units/L (5-40) 09/03/21 00:07 ALT 23 units/L (7-56) 09/03/21 00:07 Alkaline Phosphatase 67 units/L (35-129) 09/03/21 00:07 Total Creatine Kinase 222 units/L (55-170) H 09/03/21 00:07 CK-MB (CK-2) 4.0 ng/mL (0.0-4.0) 09/03/21 00:07 CK-MB (CK-2) Rel Index 1.8 (0-4) 09/03/21 00:07 Troponin T < 0.010 ng/mL (0.00-0.029) 09/03/21 00:07 NT-Pro-B Natriuret Pep 415.9 pg/mL (0-900) 09/03/21 00:07 Total Protein 7.2 g/dL (6.3-8.2) 09/03/21 00:07 Albumin 4.0 g/dL (3.9-5) 09/03/21 00:07 Albumin/Globulin Ratio 1.3 % 09/03/21 00:07 TSH 8.140 mlU/mL (0.270-4.200) H 09/03/21 00:07 Urine Color Straw (Yellow) 09/03/21 Unknown Urine Turbidity Clear (Clear) 09/03/21 Unknown Urine pH 6.0 (5.0-7.0) 09/03/21 Unknown Ur Specific [place] 1.019 (1.003-1.030) 09/03/21 Unknown Urine Protein 30 mg/dl mg/dL (Negative) 09/03/21 Unknown Urine Glucose (UA) Neg mg/dL (Negative) 09/03/21 Unknown Urine Ketones Tr mg/dL (Negative) 09/03/21 Unknown Urine Blood Lg (Negative) 09/03/21 Unknown Urine Nitrite Neg (Negative) 09/03/21 Unknown Urine Bilirubin Neg (Negative) 09/03/21 Unknown Urine Urobilinogen < 2.0 mg/dL (<2.0) 09/03/21 Unknown Ur Leukocyte Esterase Neg (Negative) 09/03/21 Unknown Urine WBC (Auto) 58.0 /HPF (0.0-6.0) H 09/03/21 Unknown Urine RBC (Auto) 8.0 /HPF (0.0-6.0) 09/03/21 Unknown Urine Yeast (Budding) 1+ /HPF 09/03/21 Unknown Plasma/Serum Alcohol < 0.01 % (0-0.07) 09/03/21 00:07 - Imaging and Cardiology CT Scan - head: report reviewed Assessment and Plan VTE prophylaxis?: Chemical Plan of care discussed with patient/family: Yes - Patient Problems (1) CVA (cerebral vascular accident) Current Visit: Yes Status: Acute Plan to address problem: Admit the patient to the telemetry. Aspirin 325 mg p.o. daily. Plavix 75 mg p.o. daily. Lipitor 80 mg p.o. daily. PT OT any speech evaluation. MRI of the brain and MRA of the brain and neck with and without contrast. Echocardiogram. Neurology evaluation. (2) Dysarthria Current Visit: Yes Status: Acute Plan to address problem: Aspirin 325 mg p.o. daily. Plavix 75 mg p.o. daily. Lipitor 80 mg p.o. daily. PT OT any speech evaluation. MRI of the brain and MRA of the brain and neck with and without contrast. Echocardiogram. Neurology evaluation. (3) UTI (urinary tract infection) Current Visit: Yes Status: Acute Plan to address problem: Rocephin 2 g IV daily. We will do the blood culture urine culture. Recheck BMP in the morning (4) DVT prophylaxis Current Visit: Yes Status: Acute Plan to address problem: Heparin 5000 units subcu every 8 hours for DVT prophylaxis. Pepcid 20 mg p.o. twice daily for GI prophylaxis. Patient is a full code
[2021-09-03] MEDS: HEPARIN 5,000 UNIT/1 ML VIAL SUB-Q SCH ×3 (06:03→23:26)
[2021-09-03] MEDS: cefTRIAXone/NS 2 GM/100 ML 2 GM/100 ML BAG IV SCH (06:10)
--- NOTE | 2021-09-03 08:33 | Consultation ---
History of Present Illness Consult date: 09/03/21 Reason for Consult: Slurred speech History of present illness: Slurred speech History of present illness: 71-year-old gentleman was brought to the hospital because of slurred speech and trouble with balance. Also patient had a facial droop initially. The patient came to the hospital because stroke like symptoms yesterday with onset at 7:00 PM, on September 02, 2021. The patient denies physical pain. He denies focal extremity weakness and numbness. He denies additional complaints. He denies taking systemic anticoagulation. Initial CT scan of the head shows no acute intracranial abnormality. Patient is seen and evaluated by telemetry neurology. Will admit the patient we will put the patient on stroke pathway will do MRI MRA and echocardiogram Pt. denied Hx of CVA he does not smoke drinks average 1-2 Bottles of red wine weekly -Initial CT ,CTA brain and neck are unremarkable -he is started on ASA and Lipitor Medications and Allergies Allergies Allergy/AdvReac Type Severity Reaction Status Date / Time No Known Allergies Allergy Unverified 09/02/21 23:30 Active Meds: Active Medications Acetaminophen (Acetaminophen 325 Mg Tab) 650 mg PO Q4H PRN PRN Reason: Pain MILD(1-3)/Fever >100.5/SOTO Albuterol (Albuterol 2.5 Mg/3 Ml Nebu) 2.5 mg IH Q4HRT PRN PRN Reason: Shortness Of Breath Albuterol/Ipratropium (Ipratropium/Albuterol Sulfate 3 Ml Ampul.Neb) 1 ampul IH Q6HRT RONALDO Aspirin (Aspirin 325 Mg Tab) 325 mg PO QDAY RONALDO Atorvastatin Calcium (Atorvastatin 40 Mg Tab) 80 mg PO QHS RONALDO Clopidogrel Bisulfate (Clopidogrel 75 Mg Tab) 75 mg PO ONCE ONE Stop: 09/03/21 04:22 Famotidine (Famotidine 20 Mg Tab) 20 mg PO BID RONALDO Heparin Sodium (Porcine) (Heparin 5,000 Unit/1 Ml Vial) 5,000 unit SUB-Q Q8HR RONALDO Hydromorphone HCl (Hydromorphone 1 Mg/1 Ml Inj) 0.5 mg IV Q3H PRN PRN Reason: Pain , Severe (7-10) Dextrose/Sodium Chloride (D5ns) 1,000 mls @ 100 mls/hr IV DIRECT RONALDO Ondansetron HCl (Ondansetron 4 Mg/2 Ml Inj) 4 mg IV Q8H PRN PRN Reason: Nausea And Vomiting Oxycodone/Acetaminophen (Oxycodone /Acetaminophen 5-325mg Tab) 1 tab PO Q6H PRN PRN Reason: Pain, Moderate (4-6) Sodium Chloride (Sodium Chloride 0.9% 10 Ml Flush Syringe) 10 ml IV BID RONALDO Sodium Chloride (Sodium Chloride 0.9% 10 Ml Flush Syringe) 10 ml IV PRN PRN PRN Reason: LINE FLUSH Sodium Chloride (Sodium Chloride 0.9% 10 Ml Flush Syringe) 10 ml INJ PRN PRN PRN Reason: LINE FLUSH Review of Systems All systems: negative Neurological: change in speech, other (Facial droop) Medications and Allergies Allergies Allergy/AdvReac Type Severity Reaction Status Date / Time No Known Allergies Allergy Verified 09/03/21 04:35 Active Meds: Active Medications Acetaminophen (Acetaminophen 325 Mg Tab) 650 mg PO Q4H PRN PRN Reason: Pain MILD(1-3)/Fever >100.5/SOTO Albuterol (Albuterol 2.5 Mg/3 Ml Nebu) 2.5 mg IH Q4HRT PRN PRN Reason: Shortness Of Breath Albuterol/Ipratropium (Ipratropium/Albuterol Sulfate 3 Ml Ampul.Neb) 1 ampul [facility] Q6HRT [facility] Aspirin (Aspirin 325 Mg Tab) 325 mg PO QDAY [facility] Atorvastatin Calcium (Atorvastatin 40 Mg Tab) 80 mg PO QHS [facility] Famotidine (Famotidine 20 Mg Tab) 20 mg PO BID [facility] Heparin Sodium (Porcine) (Heparin 5,000 Unit/1 Ml Vial) 5,000 unit SUB-Q Q8HR [facility] Last Admin: 09/03/21 06:03 Dose: 5,000 unit Documented by: Hydromorphone HCl (Hydromorphone 1 Mg/1 Ml Inj) 0.5 mg IV Q3H PRN PRN Reason: Pain , Severe (7-10) Dextrose/Sodium Chloride (D5ns) 1,000 mls @ 100 mls/hr IV DIRECT [facility] Ceftriaxone Sodium (Rocephin/Ns 2 Gm/100 Ml) 2 gm in 100 mls @ 200 mls/hr IV Q24H [facility]; Protocol Last Admin: 09/03/21 06:10 Dose: 200 mls/hr Documented by: Ondansetron HCl (Ondansetron 4 Mg/2 Ml Inj) 4 mg IV Q8H PRN PRN Reason: Nausea And Vomiting Oxycodone/Acetaminophen (Oxycodone /Acetaminophen 5-325mg Tab) 1 tab PO Q6H PRN PRN Reason: Pain, Moderate (4-6) Sodium Chloride (Sodium Chloride 0.9% 10 Ml Flush Syringe) 10 ml IV BID RONALDO Sodium Chloride (Sodium Chloride 0.9% 10 Ml Flush Syringe) 10 ml IV PRN PRN PRN Reason: LINE FLUSH Physical Examination - Vital Signs Vital Signs: Vital Signs Temp Pulse Resp BP Pulse Ox 98.8 F 96 H 18 166/86 98 09/02/21 23:27 09/02/21 23:27 09/02/21 23:27 09/02/21 23:27 09/02/21 23:27 - Constitutional General appearance: comfortable - EENT EENT: Present: PERRL, mucous membranes moist - Respiratory Respiratory: Present: lungs clear, rhonchi - Cardiovascular Cardiovascular: Present: regular rate, normal S1, normal S2 Extremities: Present: no peripheral edema bilatateraly, no clubbing, cyanosis - Gastrointestinal Gastrointestinal: Present: normoactive bowel sounds - Integumentary Integumentary: Present: normal - Neurologic Cranial nerve examination: PERRL, EOMI, intact Speech examination: intact Sensorimotor examination: intact Detailed motor examination: grossly full strength in - Musculoskeletal Musculoskeletal: Present: other (slightly brisker reflexes in left knee , finger to nose and motor exam is unremarkable.) - Level of Consciousness 1a. Level of Consciousness: alert/keenly responsive - LOC Questions 1b. LOC Questions: answers both correctly - LOC Command 1c. LOC Commands: performs tasks correctly - Best Gaze 2. Best Gaze: normal - Visual 3. Visual: no visual loss - Facial Palsy 4. Facial Palsy: normal symmetrical movement - Motor Arm 5a. Motor Arm Left: no drift 5b. Motor Arm Right: no drift - Motor Leg 6a. Motor Leg Left: no drift 6b. Motor Leg Right: no drift - Limb Ataxia 7. Limb Ataxia: absent - Sensory 8. Sensory: normal - Best Language 9. Best Language: no aphasia - Dysarthria 10. Dysarthria: normal - Extinction and Inattention 11. Extinction/Inattention: no abnormality - Scoring Total Score: 0 Stroke Severity: No Stroke Symptoms Results - Laboratory Findings CBC and BMP: 09/03/21 00:07 09/03/21 00:07 Abnormal Lab Findings: Abnormal Labs 09/03/21 09/03/21 09/03/21 00:07 00:07 00:07 WBC 13.4 H Hgb 16.2 H Hct 47.0 H MCV 99 H MCH 34 H MCHC 35 H RDW 16.4 H Seg Neuts % (Manual) 86.0 H Lymphocytes % (Manual) 8.0 L Seg Neutrophils # Man 11.5 H Lymphocytes # (Manual) 1.1 L Carbon Dioxide 20 L Glucose 167 H Total Creatine Kinase 222 H TSH Urine WBC (Auto) 09/03/21 09/03/21 00:07 Unknown WBC Hgb Hct MCV MCH MCHC RDW Seg Neuts % (Manual) Lymphocytes % (Manual) Seg Neutrophils # Man Lymphocytes # (Manual) Carbon Dioxide Glucose Total Creatine Kinase TSH 8.140 H Urine WBC (Auto) 58.0 H Assessment and Plan Assessment and Plan VTE prophylaxis?: Chemical Plan of care discussed with patient/family: Yes - Patient Problems # pt presented yesterday with new onset slurred speech -R/O CVA (cerebral vascular accident) -Admit the patient to the telemetry. - Aspirin 325 mg p.o. daily. - Lipitor 80 mg p.o. daily. - PT OT any speech evaluation. - MRI of the brain is pending - Echocardiogram is pending. -Initial NIH#1 -currently NIH#0 -BP#161/101 -Pt/ST evaluate 3# Slurred speech Vs Dysarthria - Aspirin 325 mg p.o. daily. - Plavix 75 mg p.o. Once - Lipitor 80 mg p.o. daily. - PT OT any speech evaluation. -MRI of the brain -CTA brain and neck are unremarkable # UTI (urinary tract infection) -Rocephin 2 g IV daily. We will do the blood culture urine culture. Recheck BMP in the morning # Excessive alcohol intake -average 2 bottles of wine weakly -watch for DT - # DVT prophylaxis -Heparin 5000 units subcu every 8 hours for DVT prophylaxis. Pepcid 20 mg p.o. twice daily for GI prophylaxis. Patient is a full code
[2021-09-03] MEDS: D5W/0.9% NACL 1,000 ML IV SCH (09:24)
[2021-09-03] MEDS ORDERED: FAMOTIDINE 20 MG TAB PO SCH (10:00)
[2021-09-03] MEDS: ASPIRIN 325 MG TAB PO SCH (11:00)
--- NOTE | 2021-09-03 11:11 | Event Note ---
Date: 09/03/21 Continue current management. Further diagnostic imaging studies as per neurology. No reported nursing events.
[2021-09-03] MEDS: IPRATROPIUM/ALBUTEROL SULFATE 3 ML AMPUL.NEB IH SCH ×2 (21:36→21:37)
[2021-09-03] MEDS: FAMOTIDINE 20 MG/2 ML INJ IV SCH (23:25)
[2021-09-04] MEDS: IPRATROPIUM/ALBUTEROL SULFATE 3 ML AMPUL.NEB IH SCH ×3 (02:53→14:34)
[2021-09-04] MEDS: cefTRIAXone/NS 2 GM/100 ML 2 GM/100 ML BAG IV SCH (04:54)
[2021-09-04] MEDS: D5W/0.9% NACL 1,000 ML IV SCH ×2 (05:00→18:02)
[2021-09-04] MEDS: HEPARIN 5,000 UNIT/1 ML VIAL SUB-Q SCH ×4 (05:01→21:29)
[2021-09-04 05:37] LABS: Amphetamine Screen,Urine PRESUMPTIVE NEGATIVE; Benzodiazepines Screen,Urine PRESUMPTIVE NEGATIVE; Cannabinoid Screen,Urine PRESUMPTIVE NEGATIVE; Cocaine Screen,Urine PRESUMPTIVE NEGATIVE; Methadone Screen,Urine PRESUMPTIVE NEGATIVE; Opiate Screen,Urine PRESUMPTIVE NEGATIVE
[2021-09-04 06:36] LABS: Basophils # (Auto) 0.1 K/mm3 (0.0-0.1); Basophils % (Auto) 1.2 % (0.0-1.8); Eosinophils # (Auto) 0.1 K/mm3 (0.0-0.4); Eosinophils % (Auto) 1.3 % (0.0-4.3); Hematocrit 41.9 % (35.5-45.6); Hemoglobin 14.8 gm/dl (11.8-15.2); Lymphocytes # (Auto) 1.6 K/mm3 (1.2-5.4); Lymphocytes % (Auto) 20.8 % (13.4-35.0); Mean Corpuscular HGB Conc 35 % (32-34); Mean Corpuscular Volume 99 fl (84-94); Monocytes # (Auto) 0.7 K/mm3 (0.0-0.8); Monocytes % (Auto) 9.2 % (0.0-7.3); Platelet Count 266 K/mm3 (140-440); Red Blood Count 4.23 M/mm3 (3.65-5.03); Red Cell Distribution Width 16.7 % (13.2-15.2)
[2021-09-04 06:57] LABS: Alanine Aminotransferase 14 units/L (7-56); Albumin 3.5 g/dL (3.9-5); BUN/Creatinine Ratio 8; Blood Urea Nitrogen 8 mg/dL (9-20); Chol/HDL Ratio 4.35 %; HDL Cholesterol 39 mg/dL (40-59); Hemolysis Index 6; LDL Cholesterol,Direct 113 mg/dL (50-130)
[2021-09-04] MEDS: FAMOTIDINE 20 MG/2 ML INJ IV SCH ×2 (09:53→21:29)
[2021-09-04] MEDS: ASPIRIN 325 MG TAB PO SCH (09:53)
--- NOTE | 2021-09-04 11:04 | Electrocardiograph Report ---
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
--- NOTE | 2021-09-04 19:17 | Progress Note ---
Assessment and Plan Assessment and plan: 71-year-old gentleman was brought to the hospital because of slurred speech, trouble with balance and facial droop initially. The patient came to the hospital because stroke like symptoms with onset at 7:00 PM, on September 02, 2021. The patient denies physical pain. He denies focal extremity weakness and numbness. He denies additional complaints. He denies taking systemic anticoagulation. He still feels like he is dysarthric. Patient denies any past medical problems including TIA/CVA, diabetes, heart problems or hypertension. Initial CT scan of the head shows no acute intracranial abnormality. Patient is seen and evaluated by telemetry neurology. Patient is admitted and placed on on stroke pathway will do MRI MRA and echocardiogram Assessment and Plan VTE prophylaxis?: Chemical Plan of care discussed with patient/family: Yes - Patient Problems (1) suspected acute CVA (cerebral vascular accident) Current Visit: Yes Status: Acute Plan to address problem: Admit the patient to the telemetry. Stroke protocol initiated. Aspirin 325 mg p.o. daily. Plavix 75 mg p.o. daily. Lipitor 80 mg p.o. daily. PT OT any speech evaluation. CT of the brain and CTA of head and neck unremarkable. Patient reports resolution of dysarthria and gait imbalance. He appears to have subtle left lower facial weakness, neuro exam is otherwise unremarkable currently. He reports no difficulty walking to the bathroom. Awaiting MRI of brain and echocardiogram to complete a stroke work-up. Chest x-ray unremarkable and patient remains in sinus rhythm. Patient denies any past medical problems including the CVA/TIA, hypertension, diabetes or heart disease. Chest x-ray unremarkable. (2) alcohol use Current Visit: Yes Status: Acute Plan to address problem: Patient reports drinking 1 to 2 glass of wine daily and more when he watches sports on TV. However, he denies drinking alcohol excessively. LFTs normal. No evidence of alcohol withdrawal symptoms. (3) UTI (urinary tract infection) Current Visit: Yes Status: Acute Plan to address problem: UA is suggestive of UTI. Asymptomatic. Rocephin 2 g IV daily. We will do the blood culture urine culture. (4) DVT prophylaxis Current Visit: Yes Status: Acute Plan to address problem: Heparin 5000 units subcu every 8 hours for DVT prophylaxis. Pepcid 20 mg p.o. twice daily for GI prophylaxis. Patient is a full code Disposition: Patient will be discharged once MRI brain and echocardiogram resulted. Discussed the patient as well as case management. History Interval history: Patient currently has no complaints. Patient reports that slurred speech as well as acute disequilibrium/unsteady gait resolved. However patient appears to have some mild left lower facial weakness. Reports that he is walking to bathroom without difficulty. Denies focal weakness in extremities, vision changes or swallowing difficulty. Is eating regular diet. He is awaiting MRI of the brain and echocardiogram to complete stroke work-up. Vital signs are stable. CBC and chemistry unremarkable. . Hospitalist Physical - Constitutional Vitals: Temp Pulse Resp BP Pulse Ox 98.4 F 77 18 146/93 94 09/04/21 15:33 09/04/21 15:33 09/04/21 15:33 09/04/21 15:33 09/04/21 15:33 General appearance: Present: no acute distress, well-nourished - EENT Eyes: Present: PERRL, EOM intact ENT: other (Mild left lower facial weakness) - Neck Neck: Present: supple. Absent: carotid bruits - Respiratory Respiratory effort: normal - Cardiovascular Rhythm: regular - Extremities Extremities: No edema - Abdominal General gastrointestinal: soft, non-tender, non-distended - Integumentary Integumentary: Absent: rash - Psychiatric Psychiatric: appropriate mood/affect - Neurologic Neurologic: other (Alert and oriented, normal speech, mild left lower facial weakness otherwise no focal motor deficit. No drift in extremities. No tremors. [id number] test normal. Gait not tested.) HEART Score - HEART Score Troponin: Troponin T < 0.010 ng/mL (0.00-0.029) 09/03/21 00:07 Results - Labs CBC & Chem 7: 09/04/21 05:50 09/04/21 05:50 Labs: Laboratory Last Values WBC 7.5 K/mm3 (4.5-11.0) 09/04/21 05:50 RBC 4.23 M/mm3 (3.65-5.03) 09/04/21 05:50 Hgb 14.8 gm/dl (11.8-15.2) 09/04/21 05:50 Hct 41.9 % (35.5-45.6) 09/04/21 05:50 MCV 99 fl (84-94) H 09/04/21 05:50 MCH 35 pg (28-32) H 09/04/21 05:50 MCHC 35 % (32-34) H 09/04/21 05:50 RDW 16.7 % (13.2-15.2) H 09/04/21 05:50 Plt Count 266 K/mm3 (140-440) 09/04/21 05:50 Lymph % (Auto) 20.8 % (13.4-35.0) 09/04/21 05:50 [place] % (Auto) 9.2 % (0.0-7.3) H 09/04/21 05:50 Eos % (Auto) 1.3 % (0.0-4.3) 09/04/21 05:50 Baso % (Auto) 1.2 % (0.0-1.8) 09/04/21 05:50 Lymph # (Auto) 1.6 K/mm3 (1.2-5.4) 09/04/21 05:50 [place] # (Auto) 0.7 K/mm3 (0.0-0.8) 09/04/21 05:50 Eos # (Auto) 0.1 K/mm3 (0.0-0.4) 09/04/21 05:50 Baso # (Auto) 0.1 K/mm3 (0.0-0.1) 09/04/21 05:50 Add Manual Diff Complete 09/03/21 00:07 Total Counted 100 09/03/21 00:07 Seg Neutrophils % 67.5 % (40.0-70.0) 09/04/21 05:50 Seg Neuts % (Manual) 86.0 % (40.0-70.0) H 09/03/21 00:07 Lymphocytes % (Manual) 8.0 % (13.4-35.0) L 09/03/21 00:07 Monocytes % (Manual) 6.0 % (0.0-7.3) 09/03/21 00:07 Nucleated RBC % Not Reportable 09/03/21 00:07 Seg Neutrophils # 5.1 K/mm3 (1.8-7.7) 09/04/21 05:50 Seg Neutrophils # Man 11.5 K/mm3 (1.8-7.7) H 09/03/21 00:07 Band Neutrophils # 0.0 K/mm3 09/03/21 00:07 Lymphocytes # (Manual) 1.1 K/mm3 (1.2-5.4) L 09/03/21 00:07 Abs React Lymphs (Man) 0.0 K/mm3 09/03/21 00:07 Monocytes # (Manual) 0.8 K/mm3 (0.0-0.8) 09/03/21 00:07 Eosinophils # (Manual) 0.0 K/mm3 (0.0-0.4) 09/03/21 00:07 Basophils # (Manual) 0.0 K/mm3 (0.0-0.1) 09/03/21 00:07 Metamyelocytes # 0.0 K/mm3 09/03/21 00:07 Myelocytes # 0.0 K/mm3 09/03/21 00:07 Promyelocytes # 0.0 K/mm3 09/03/21 00:07 Blast Cells # 0.0 K/mm3 09/03/21 00:07 WBC Morphology Not Reportable 09/03/21 00:07 Hypersegmented Neuts Not Reportable 09/03/21 00:07 Hyposegmented Neuts Not Reportable 09/03/21 00:07 Hypogranular Neuts Not Reportable 09/03/21 00:07 Smudge Cells Not Reportable 09/03/21 00:07 Toxic Granulation Not Reportable 09/03/21 00:07 Toxic Vacuolation Not Reportable 09/03/21 00:07 Dohle Bodies Not Reportable 09/03/21 00:07 Pelger-Huet Anomaly Not Reportable 09/03/21 00:07 Fredrick Rods Not Reportable 09/03/21 00:07 Platelet Estimate Consistent w auto 09/03/21 00:07 Clumped Platelets Not Reportable 09/03/21 00:07 Plt Clumps, EDTA Not Reportable 09/03/21 00:07 Large Platelets Not Reportable 09/03/21 00:07 Giant Platelets Not Reportable 09/03/21 00:07 Platelet Satelliting Not Reportable 09/03/21 00:07 Plt Morphology Comment Not Reportable 09/03/21 00:07 RBC Morphology Not Reportable 09/03/21 00:07 Dimorphic RBCs Not Reportable 09/03/21 00:07 Polychromasia Not Reportable 09/03/21 00:07 Hypochromasia Not Reportable 09/03/21 00:07 Poikilocytosis Not Reportable 09/03/21 00:07 Anisocytosis Not Reportable 09/03/21 00:07 Microcytosis Not Reportable 09/03/21 00:07 Macrocytosis Few 09/03/21 00:07 Spherocytes Not Reportable 09/03/21 00:07 Pappenheimer Bodies Not Reportable 09/03/21 00:07 Sickle Cells Not Reportable 09/03/21 00:07 Target Cells Not Reportable 09/03/21 00:07 Tear Drop Cells Not Reportable 09/03/21 00:07 Ovalocytes Not Reportable 09/03/21 00:07 Helmet Cells Not Reportable 09/03/21 00:07 [place] Bodies Not Reportable 09/03/21 00:07 [place] Rings Not Reportable 09/03/21 00:07 Rector Cells Not Reportable 09/03/21 00:07 Bite Cells Not Reportable 09/03/21 00:07 Crenated Cell Not Reportable 09/03/21 00:07 Elliptocytes Not Reportable 09/03/21 00:07 Acanthocytes (Spur) Not Reportable 09/03/21 00:07 Rouleaux Not Reportable 09/03/21 00:07 Hemoglobin C Crystals Not Reportable 09/03/21 00:07 Schistocytes Not Reportable 09/03/21 00:07 Malaria parasites Not Reportable 09/03/21 00:07 Grady Bodies Not Reportable 09/03/21 00:07 Hem Pathologist Commnt No 09/03/21 00:07 PT 13.1 Sec. (12.2-14.9) 09/03/21 00:07 INR 0.94 (0.87-1.13) 09/03/21 00:07 APTT 26.4 Sec. (24.2-36.6) 09/03/21 00:07 Thrombin Time 17.2 Sec. (15.1-19.6) 09/03/21 00:07 Sodium 138 mmol/L (137-145) 09/04/21 05:50 Potassium 3.6 mmol/L (3.6-5.0) 09/04/21 05:50 Chloride 105.5 mmol/L (98-107) 09/04/21 05:50 Carbon Dioxide 21 mmol/L (22-30) L 09/04/21 05:50 Anion Gap 15 mmol/L 09/04/21 05:50 BUN 8 mg/dL (9-20) L 09/04/21 05:50 Creatinine 1.0 mg/dL (0.8-1.3) 09/04/21 05:50 Estimated GFR > 60 ml/min 09/04/21 05:50 BUN/Creatinine Ratio 8 % 09/04/21 05:50 Glucose 164 mg/dL (75-100) H 09/04/21 05:50 Calcium 8.0 mg/dL (8.4-10.2) L 09/04/21 05:50 Magnesium 1.70 mg/dL (1.7-2.3) 09/03/21 00:07 Total Bilirubin 0.60 mg/dL (0.1-1.2) 09/04/21 05:50 AST 19 units/L (5-40) 09/04/21 05:50 ALT 14 units/L (7-56) 09/04/21 05:50 Alkaline Phosphatase 61 units/L (35-129) 09/04/21 05:50 Total Creatine Kinase 222 units/L (55-170) H 09/03/21 00:07 CK-MB (CK-2) 4.0 ng/mL (0.0-4.0) 09/03/21 00:07 CK-MB (CK-2) Rel Index 1.8 (0-4) 09/03/21 00:07 Troponin T < 0.010 ng/mL (0.00-0.029) 09/03/21 00:07 NT-Pro-B Natriuret Pep 415.9 pg/mL (0-900) 09/03/21 00:07 Total Protein 6.1 g/dL (6.3-8.2) L 09/04/21 05:50 Albumin 3.5 g/dL (3.9-5) L 09/04/21 05:50 Albumin/Globulin Ratio 1.3 % 09/04/21 05:50 Triglycerides 102 mg/dL (2-149) 09/04/21 05:50 Cholesterol 170 mg/dL (50-199) 09/04/21 05:50 LDL Cholesterol Direct 113 mg/dL (50-130) 09/04/21 05:50 HDL Cholesterol 39 mg/dL (40-59) L 09/04/21 05:50 Cholesterol/HDL Ratio 4.35 % 09/04/21 05:50 TSH 8.140 mlU/mL (0.270-4.200) H 09/03/21 00:07 Urine Color Straw (Yellow) 09/03/21 Unknown Urine Turbidity Clear (Clear) 09/03/21 Unknown Urine pH 6.0 (5.0-7.0) 09/03/21 Unknown Ur Specific [place] 1.019 (1.003-1.030) 09/03/21 Unknown Urine Protein 30 mg/dl mg/dL (Negative) 09/03/21 Unknown Urine Glucose (UA) Neg mg/dL (Negative) 09/03/21 Unknown Urine Ketones Tr mg/dL (Negative) 09/03/21 Unknown Urine Blood Lg (Negative) 09/03/21 Unknown Urine Nitrite Neg (Negative) 09/03/21 Unknown Urine Bilirubin Neg (Negative) 09/03/21 Unknown Urine Urobilinogen < 2.0 mg/dL (<2.0) 09/03/21 Unknown Ur Leukocyte Esterase Neg (Negative) 09/03/21 Unknown Urine WBC (Auto) 58.0 /HPF (0.0-6.0) H 09/03/21 Unknown Urine RBC (Auto) 8.0 /HPF (0.0-6.0) 09/03/21 Unknown Urine Yeast (Budding) 1+ /HPF 09/03/21 Unknown Urine Opiates Screen Presumptive negative 09/03/21 05:15 Urine Methadone Screen Presumptive negative 09/03/21 05:15 Ur Barbiturates Screen Presumptive negative 09/03/21 05:15 Ur Phencyclidine Scrn Presumptive negative 09/03/21 05:15 Ur Amphetamines Screen Presumptive negative 09/03/21 05:15 U Benzodiazepines Scrn Presumptive negative 09/03/21 05:15 Urine Cocaine Screen Presumptive negative 09/03/21 05:15 U Marijuana (THC) Screen Presumptive negative 09/03/21 05:15 Drugs of Abuse Note Disclamer 09/03/21 05:15 Plasma/Serum Alcohol < 0.01 % (0-0.07) 09/03/21 00:07 Monreal/IV: Voiding Method Urinal Active Medications - Current Medications Current Medications: Generic Name Dose Route Start Last Admin Trade Name Freq PRN Reason Stop Dose Admin Acetaminophen 650 mg 09/03/21 04:15 Acetaminophen 325 Mg Tab PO Q4H PRN Pain MILD(1-3)/Fever >100.5/SOTO Albuterol 2.5 mg 09/03/21 04:15 Albuterol 2.5 Mg/3 Ml Nebu IH Q4HRT PRN Shortness Of Breath Albuterol/Ipratropium 1 ampul 09/03/21 08:00 09/04/21 14:34 Ipratropium/Albuterol Sulfate 3 Ml Ampul.Neb IH Not Given Q6HRT RONALDO Aspirin 325 mg 09/03/21 10:00 09/04/21 09:53 Aspirin 325 Mg Tab PO Not Given QDAY RONALDO Atorvastatin Calcium 80 mg 09/03/21 22:00 09/03/21 23:25 Atorvastatin 40 Mg Tab PO Not Given QHS RONALDO Famotidine 20 mg 09/03/21 22:00 09/04/21 09:53 Famotidine 20 Mg/2 Ml Inj IV 20 mg BID RONALDO Administration Heparin Sodium (Porcine) 5,000 unit 09/03/21 06:00 09/04/21 17:59 Heparin 5,000 Unit/1 Ml Vial SUB-Q Not Given Q8HR RONALDO Hydromorphone HCl 0.5 mg 09/03/21 04:15 Hydromorphone 1 Mg/1 Ml Inj IV Q3H PRN Pain , Severe (7-10) Dextrose/Sodium Chloride 1,000 mls @ 100 mls/hr 09/03/21 05:00 09/04/21 18:02 D5ns IV 100 mls/hr DIRECT RONALDO Administration Ceftriaxone Sodium 2 gm in 100 mls @ 200 mls/hr 09/03/21 05:00 09/04/21 04:54 Rocephin/Ns 2 Gm/100 Ml IV 09/07/21 06:59 100 mls/hr Q24H RONALDO Administration Protocol Ondansetron HCl 4 mg 09/03/21 04:15 09/03/21 19:49 Ondansetron 4 Mg/2 Ml Inj IV 4 mg Q8H PRN Administration Nausea And Vomiting Oxycodone/Acetaminophen 1 tab 09/03/21 04:15 Oxycodone /Acetaminophen 5-325mg Tab PO Q6H PRN Pain, Moderate (4-6) Sodium Chloride 10 ml 09/03/21 10:00 09/04/21 09:54 Sodium Chloride 0.9% 10 Ml Flush Syringe IV 10 ml BID RONALDO Administration Sodium Chloride 10 ml 09/03/21 04:15 Sodium Chloride 0.9% 10 Ml Flush Syringe IV PRN PRN LINE FLUSH
[2021-09-05] MEDS: IPRATROPIUM/ALBUTEROL SULFATE 3 ML AMPUL.NEB IH SCH (01:30)
[2021-09-05 04:39] VITALS: BP 176/90
[2021-09-05] MEDS: cefTRIAXone/NS 2 GM/100 ML 2 GM/100 ML BAG IV SCH (05:03)
[2021-09-05] MEDS: HEPARIN 5,000 UNIT/1 ML VIAL SUB-Q SCH (05:04)
[2021-09-05] MEDS: D5W/0.9% NACL 1,000 ML IV SCH (05:21)
[2021-09-05] MEDS: ASPIRIN 325 MG TAB PO SCH (09:59)
[2021-09-05] MEDS ORDERED: FAMOTIDINE 20 MG TAB PO SCH (10:00)
--- NOTE | 2021-09-05 10:21 | Discharge Summary ---
Providers - Providers Date of Admission: 09/04/21 10:54 Attending physician: SHIVAM MARIE MD 09/03/21 04:15 Consult to Physician [CONS] Routine Comment: Consulting Provider: GAY SUE Physician Instructions: Reason For Exam: cva Occupational Therapy Evaluate and Treat [CONS] Routine Comment: Reason For Exam: Neuro deficits Physical Therapy Evaluation and Treat [CONS] Routine Comment: Reason For Exam: Neuro deficits 09/03/21 13:44 Speech Therapy Evaluation and Treat [CONS] Urgent Reason For Exam: delayed swallow Primary care physician: EDITORIAL CLERK Hospitalization Reason for admission: CVA Condition: Stable Hospital course: 71-year-old gentleman was brought to the hospital because of slurred speech, trouble with balance and facial droop initially. The patient came to the hospital because stroke like symptoms with onset at 7:00 PM, on September 02, 2021. The patient denies physical pain. He denies focal extremity weakness and numbness. He denies additional complaints. He denies taking systemic anticoagulation. He still feels like he is dysarthric. Patient denies any past medical problems including TIA/CVA, diabetes, heart problems or hypertension. Initial CT scan of the head shows no acute intracranial abnormality. Patient is seen and evaluated by telemetry neurology. Patient is admitted and placed on on stroke pathway will do MRI MRA and echocardiogram Patient currently has no complaints. Patient reports that slurred speech as well as acute disequilibrium/unsteady gait resolved. However patient appears to have some mild left lower facial weakness. Reports that he is walking to bathroom without difficulty. Denies focal weakness in extremities, vision changes or swallowing difficulty. Is eating regular diet. He is awaiting MRI of the brain and echocardiogram to complete stroke work-up. Vital signs are stable. CBC and chemistry unremarkable. 09/05 MRI Acute small lacunar stroke left basal gangila. 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 (1) Acute CVA (cerebral vascular accident) Current Visit: Yes Status: Acute Plan to address problem: Admit the patient to the telemetry. Stroke protocol initiated. Aspirin 325 mg p.o. daily. Plavix 75 mg p.o. daily. Lipitor 80 mg p.o. daily. PT OT any speech evaluation. CT of the brain and CTA of head and neck unremarkable. Patient reports resolution of dysarthria and gait imbalance. He appears to have subtle left lower facial weakness, neuro exam is otherwise unremarkable currently. He reports no difficulty walking to the bathroom. Awaiting MRI of brain and echocardiogram to complete a stroke work-up. Chest x-ray unremarkable and patient remains in sinus rhythm. Patient denies any past medical problems including the CVA/TIA, hypertension, diabetes or heart disease. Chest x-ray unremarkable. (2) alcohol use Current Visit: Yes Status: Acute Plan to address problem: Patient reports drinking 1 to 2 glass of wine daily and more when he watches sports on TV. However, he denies drinking alcohol excessively. LFTs normal. No evidence of alcohol withdrawal symptoms. (3) UTI (urinary tract infection) Current Visit: Yes Status: Acute Plan to address problem: UA is suggestive of UTI. Asymptomatic. Rocephin 2 g IV daily. No growth on cultures Disposition: HOME HEALTH CARE SERVICE Final Discharge Diagnosis (Prints w/discharge instructions): ACUTE LACUNAR IN FARCT Time spent for discharge: 35 mins Core Measure Documentation - Palliative Care Palliative Care/ Comfort Measures: Not Applicable - Core Measures Any of the following diagnoses?: none Exam - Physical Exam Narrative exam: General appearance: Present: no acute distress, well-nourished - EENT Eyes: Present: PERRL ENT: hearing intact, clear oral mucosa - Neck Neck: Present: supple, normal ROM - Respiratory Respiratory effort: normal Respiratory: bilateral: CTA - Cardiovascular Heart Sounds: Present: S1 & S2. Absent: rub, click - Extremities Extremities: pulses symmetrical, No edema Peripheral Pulses: within normal limits - Abdominal General gastrointestinal: Present: soft, non-tender, non-distended, normal bowel sounds Male genitourinary: Present: normal - Integumentary Integumentary: Present: clear, warm, dry - Musculoskeletal Musculoskeletal: gait normal, strength equal bilaterally - Psychiatric Psychiatric: appropriate mood/affect, intact judgment & insight - Neurologic Neurologic: CNII-XII intact, moves all extremities - Constitutional Vitals: Temp Pulse Resp BP Pulse Ox 98.6 F 68 16 176/90 92 09/05/21 04:07 09/05/21 04:07 09/05/21 04:07 09/05/21 04:07 10/12/21 04:07 Plan Activity: advance as tolerated, fall precautions Diet: low fat Special Instructions: record daily weights, record daily BP diary, physical therapy, occupational therapy Follow up with: PRIMARY CAREMD [Primary Care Provider] - 3-5 Days ANNE HWEAT MD [Staff Physician] - 7 Days Prescriptions: AtorvaSTATin [Lipitor] 80 mg PO QHS #60 tablet Aspirin 325 mg PO QDAY #30 tablet cephALEXin [Keflex] 500 mg PO Q8HR #21 cap Famotidine [Pepcid] 20 mg PO BID #60 tablet
--- NOTE | 2021-09-05 10:28 | Magnetic Resonance Report ---
MRI BRAIN WITHOUT AND WITH CONTRAST INDICATION / CLINICAL INFORMATION: stroke sx, difficulty walking. TECHNIQUE: Multisequence, multiplanar images were obtained. 18 cc of Clariscan was administered intravenously fo r postcontrast imaging. COMPARISON: None available. FINDINGS: CEREBRAL and CEREBELLAR HEMISPHERES: An approximate 9 mm focus of diffusion restriction is identified in the left basal ganglia region which appears to involve the posterior putamen and posterior limb o f the left internal capsule. No other areas of diffusion restriction are identified. No acute hemor rhage. No extra-axial fluid collection. Chronic 1 cm infarct in the left anterior cerebellum is note d. No large chronic infarct. Mild diffuse cortical volume loss and mild chronic ischemic changes in t he white matter are again noted. There is no evidence for abnormal enhancement following IV gadoliniu m. VENTRICLES: Normal in size and configuration for age. VISUALIZED ORBITS: No significant abnormality. VISUALIZED PARANASAL SINUSES: Minimal mucosal thickening is noted in the ethmoid air cells and inferi or maxillary sinuses. ADDITIONAL FINDINGS: None. IMPRESSION: 9 mm acute to subacute ischemic infarct in the left basal ganglia as described. 1 cm chronic focal infarct in the left anterior cerebellum. Volume loss. Chronic white matter changes. No abnormal enhancement following IV gadolinium. Signer Name: Demetri Estrada Jr, MD Signed: 09/05/2021 10:24 AM Workstation Name: [id number]
== END 2021-09-05 12:15 | disposition home or self-care (01) | DRG 65 ==
LOC: ED 23:22 → 3A 09-03 00:27 → OBSVTOIN 09-04 10:54
PROVIDERS: ADMIT Hospitalist; ATTEND Internal Medicine
DX: I63.9 Cerebral infarction, unspecified (principal); N39.0 Urinary tract infection, site not specified; R60.0 Localized edema; R47.1 Dysarthria and anarthria; Z72.89 Other problems related to lifestyle
CPT/HCPCS: 36415; 70450; 70496; 70498; 70553; 71045; 80053; 80061; 80307; 80320; 81001; 82550; 82553; 83735; 83880; 84439; 84443; 84484; 85007; 85025; 85610; 85670; 85730; 87086; 93005; 93306; 94640; G0378; A9575; G0480; J0696; J1644; J2405; J7042; Q9967